=== PATIENT | male | born 1970 | race Caucasian/White ===

== ENCOUNTER 2019-02-27 11:00 | Emergency (ER) | payer MEDICAID, OTHER ==
[2019-02-27 11:42] LABS: CHLORIDE,CL 105 mmol/L (98-107); SODIUM,NA 142 mmol/L (136-145)
[2019-02-27] MEDS ORDERED: traMADol 50 MG Tab PO ONE (13:08)
[2019-02-27] MEDS ORDERED: Acetaminophen 500 MG Tab PO ONE (13:08)
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
== END 2019-02-27 14:05 ==
LOC: LL.ED 11:00
DX: S06.0X0A Concussion without loss of consciousness, initial encounter (principal); S42.135A Nondisplaced fracture of coracoid process, left shoulder, initial encounter for closed fracture; S01.01XA Laceration without foreign body of scalp, initial encounter; I10 Essential (primary) hypertension; Z79.82 Long term (current) use of aspirin; Z91.09 Other allergy status, other than to drugs and biological substances; V59.9XXA Occupant (driver) (passenger) of pick-up truck or van injured in unspecified traffic accident, initial encounter
CPT/HCPCS: 12001; 29240; 36000; 36415; 70450; 72125; 73030; 73200; 80053; 81001; 85025; 99291; A9270; 99284